=== PATIENT | female | born 1990 | race American Indian/Alaskan Native ===

== ENCOUNTER 2017-11-04 06:33 | Inpatient (IN) | payer MEDICAID ==
[~2017-11-04 06:33] MED LIST: Acetaminophen 325 MG Tab PO PRN; Carboprost Tromethamine 250 MCG/1 ML Amp IM PRN; Lactated Ringers 1,000 ML IV SCH; Lactated Ringers 500 ML IV ONE; Lidocaine 1% 30 ML SDV INJECT PRN; Methylergonovine 0.2 MG/1 ML Amp IM PRN; Misoprostol 25 MCG (1/4 of 100 MCG) Tab VAG PRN; Misoprostol 400 MCG (4 X 100 MCG TAB) RECTAL PRN; Ondansetron 4 MG/2 ML SDV IV PRN; Oxytocin/Normal Saline 30 UNIT/500 ML BAG IV SCH; Penicillin G Potassium 5 MILLUNITS in Sodium Chloride 0.9% 100 ML IV ONE; Sodium Chloride 0.9% 10 ML Syringe FLUSH PRN; Tranexamic Acid 1,000 MG in Sodium Chloride 0.9% 100 ML IV PRN; fentaNYL 100 MCG/2 ML SDV IVPUSH PRN
[2017-11-04] MEDS ORDERED: Terbutaline 1 MG/ML SDV SUBCUT ONE (08:00)
[2017-11-04] MEDS ORDERED: ceFAZolin 2 GM in Premix Bag 1 BAG IV ONE (08:24)
[2017-11-04] MEDS ORDERED: Citric Acid/Sodium Citrate Solution 30 ML Cup PO ONE (08:24)
--- NOTE | 2017-11-04 09:37 | US ---
CLINICAL HISTORY: 27 year old gravid female in a breech presentation. External cephalad version attem pt unsuccessful. Single live intrauterine uterine gestation with variable heart rate during external version (149 bpm pre-version; 161 bpm during the attempt; and heart rate 181 bpm after the external version atte mpt). CONCLUSION: Unsuccessful external version, i.e., single live intrauterine gestation breech presentati on.
[2017-11-04] MEDS ORDERED: Penicillin G Potassium 3 MILLUNITS in Sodium Chloride 0.9% 100 ML IV SCH (10:00)
[2017-11-04] MEDS ORDERED: Oxytocin/Normal Saline 60 UNIT/1,000 ML BAG ONE (12:00)
[2017-11-04] MEDS: Lactated Ringers 1,000 ML IV SCH ×2 (12:00→17:00)
[2017-11-04] MEDS ORDERED: Oxytocin/Normal Saline 30 UNIT/500 ML BAG IV ONE (13:32)
[2017-11-04] MEDS ORDERED: Naloxone 2 MG/2 ML Syringe IVPUSH PRN (13:34)
[2017-11-04] MEDS ORDERED: ePHEDrine 50 MG/ML SDV IVPUSH PRN (13:34)
[2017-11-04] MEDS ORDERED: diphenhydrAMINE 50 MG/ML SDV IVPUSH PRN (13:34)
[2017-11-04] MEDS ORDERED: Carboprost Tromethamine 250 MCG/1 ML Amp IM ONE (13:34)
[2017-11-04] MEDS ORDERED: Measles, Mumps & Rubella Vaccine 0.5 ML SDV SUBCUT ONE (13:34)
[2017-11-04] MEDS ORDERED: Acetaminophen/oxyCODONE 325-5 MG Tab PO PRN (13:34)
[2017-11-04] MEDS ORDERED: Acetaminophen 325 MG Tab PO PRN (13:34)
[2017-11-04] MEDS ORDERED: Methylergonovine 0.2 MG/1 ML Amp IM PRN (13:34)
[2017-11-04] MEDS ORDERED: Ondansetron 4 MG/2 ML SDV IV PRN (13:34)
[2017-11-04] MEDS ORDERED: Tranexamic Acid 1,000 MG in Sodium Chloride 0.9% 100 ML IV PRN (13:34)
[2017-11-04] MEDS ORDERED: Misoprostol 400 MCG (4 X 100 MCG TAB) RECTAL PRN (13:34)
[2017-11-04] MEDS ORDERED: Propofol 200 MG/20 ML SDV IV ONE (15:23)
[2017-11-04] MEDS ORDERED: Midazolam 1 MG/ML 2 ML SDV IV ONE (15:23)
[2017-11-04] MEDS ORDERED: Morphine PF 1 MG/ML Amp ONE (15:23)
[2017-11-04] MEDS ORDERED: Lactated Ringers 1,000 ML IV ONE (15:23)
[2017-11-04] MEDS ORDERED: fentaNYL 100 MCG/2 ML SDV ITHECAL ONE (15:23)
[2017-11-04] MEDS ORDERED: Bupivacaine 0.75%/D5W 2 ML Amp INJECT ONE (15:23)
--- NOTE | 2017-11-04 16:57 | OR ---
DATE: 11/04/2017 PROCEDURE PERFORMED: Primary low transverse section. INDICATION FOR PROCEDURE: 1. Breech presentation. 2. Poor growth. PREPROCEDURE DIAGNOSES: 1. 3, para 2-0-0-2. 2. 38 and 1/7 weeks' intrauterine . 3. Poor growth. 4. Maternal smoker. 5. Group B streptococcus bacteriuria. 6. Rubella nonimmune. 7. Iron-deficiency anemia. 8. Anemia of . 9. Benign gestational thrombocytopenia. 10.Unstable lie with failed external cephalad version earlier today. POSTPROCEDURE DIAGNOSES: 1. 3, now para 3-0-0-3. 2. 38 and 1/7 weeks' intrauterine . 3. Poor growth. 4. Maternal smoker. 5. Group B streptococcus bacteriuria. 6. Rubella nonimmune. 7. Iron-deficiency anemia. 8. Anemia of . 9. Benign gestational thrombocytopenia. 10.Unstable lie with failed external cephalad version earlier today. 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 12.Placenta accreta with posterior placenta predominantly on the maternal left as well. 13.Delivery of a small for gestational age infant. SURGEON: Abril Colon MD RETAIL SECURITY PROFESSIONAL: Freddy Tidwell MD SECOND LAUNCH MANAGER: Concha Oreilly MS-III BRIEF HISTORY: The patient presented to the hospital this morning for planned external cephalic version, which was attempted, but unsuccessful. Due to the baby measuring less than the 3rd percentile for growth, it was important that we proceed with delivery today and with breech presentation that needed to be done via section. CONSENT: Discussed with the patient and her significant other indications risks, benefits, and alternatives of primary low transverse section including, but not limited to risk of infection and plan for preoperative antibiotics, risk of bleeding that could require a blood transfusion as well as its inherent risks including transfusion reaction, contraction of bloodborne disease or illness and other inherent risks, risk of injury to any large blood vessels, nerves, veins, internal organs or other adjacent unintended structures including but not limited to uterus fallopian tubes, ovaries, bladder, intestines, and other adjacent structures, potential injury to the baby, potential for complications for mother and/or baby that would require a transfer to a higher level of care and even remote risk of . She had verbalized understanding. Her questions were answered. Consent forms were signed, and can be found in the chart. PROCEDURE IN DETAIL: The patient was brought to the operating room and spinal anesthesia obtained. She was laid in the normal dorsal supine position with leftward tilt and Cortez indwelling catheter placed. Abdomen was prepped and draped in the usual fashion and a skin incision made at 12:28 with scalpel, carried down to the underlying fascia using finger dissection and cautery. Fascia was incised in the midline with cautery and extended bilaterally with traction. Superior fascia was elevated and rectus muscles dissected off bluntly. The inferior fascial edge grasped with Cornelius's, tented up, and rectus muscle dissected off bluntly. The peritoneal cavity entered with blunt finger dissection. The Alok O retractor then placed. Uterus palpated and noted to have a heart shape with a dominant left side. Appropriate location for uterine incision was made with the scalpel and both the baby's feet were presenting, so feet and legs were brought through the hysterotomy site with baby sacrum anterior. Baby was then rotated to have the right shoulder anterior, that arm was swept across the chest and out of the hysterotomy site. Baby then rotated to have the left arm anterior, which was then swept across the chest, and out of the hysterotomy site while maintaining flexion of the head, the remainder of the infant was delivered at 1231. 's umbilical cord was noted to be around the neck in a necktie fashion and rather thin, as far as [place] jelly and I suspect would have caused cord incident during attempted vaginal . The infant's nose and mouth were bulb suctioned. Three-vessel umbilical cord doubly clamped, cut, and baby taken to the warmer for further evaluation. The placenta was attempted to be removed by cord traction and concomitant uterine massage; however, we were having great difficulty and cord was tearing, therefore, the majority of it was removed by manual extraction. However, there were a large adherent area more so of the amniotic type sac material to the posterior uterine wall, primarily on the left side, which were removed with ring forcep and finger curettage with lap sponge. After we felt we had all of the amniotic sac and all placental material removed, the hysterotomy site was closed with a running lock suture of 0 Vicryl in the usual fashion. There was some brisk bleeding, controlled with Hightower and pressure as we went along. A 2nd imbricating stitch was placed and the majority of hemostasis achieved; however, 1 additional [id number] stitch was needed in the midline to achieve final hemostasis. The Alok retractor was removed; prior to this, the uterus had been inspected, bicornuate shape with some small fibroids were noted. Again, the dominant left horn was seen. The pericolic gutters were cleared of all clots and debris and the layer irrigated. The hysterotomy site reinspected and remained hemostatic. Peritoneal layer was closed with a running stitch of 0 Vicryl that was left over. The fascia was then closed with 0 looped PDS in the usual fashion and hemostasis again verified in the subcutaneous tissue with cautery used as needed for small subcutaneous bleeders. This layer was then irrigated and the skin was closed with a running stitch of 4-0 Monocryl, and further reinforced with Mastisol and Steri-Strips. Case complete at 1315. The patient tolerated the procedure fairly well. She was not feeling anything sharp, but the pressure of the procedure was causing significant pain, so she did receive additional anesthesia and I believe anxiolytics during the case. ESTIMATED BLOOD LOSS: 1000 mL. URINE OUTPUT: 400 mL of clear. FLUIDS: 1200 mL of crystalloids. FINDINGS: Viable female , weighing 5 pounds 3 ounces, scores to be determined. DISPOSITION: Baby went to the nursery. Mother to stay in the PACU for further recovery time and they will be reunited. [facility] /[id number] REBECA
--- NOTE | 2017-11-04 17:24 | OR ---
DATE: 11/04/2017 PROCEDURE PERFORMED: External cephalad version. PLATER PRINTED CIRCUIT BOARD PANELS: Freddy Tidwell MD SECOND GOLF BALL INSPECTOR: Concha Oreilly, MS-III BRIEF HISTORY: The patient is a 3, para 2-0-0-2, currently with a poorly-growing fetus; however, reassuring testing and adequate DIANE of over 11. Baby has been variable breech and vertex with unstable lie, currently breech and baby needs to be delivered because of the poor growth. Plan today is for attempted external cephalad version to allow for vaginal delivery because of the growth restriction. Mother is willing to proceed and appropriate consent forms had been signed. I did discuss with her indication as to return vertex in order to allow for vaginal delivery which has lower risk than immediately proceeding to primary ; however, if unsuccessful, delivery via would be indicated. Risk of potential uterine rupture; placental abruption; cord accident caused, need for an emergency section as well as its inherent risks; risk of discomfort. The patient verbalizes understanding and her questions have been answered. PROCEDURE IN DETAIL: The patient was brought into the hospital earlier this morning and she did have a reactive category I tracing. She was given terbutaline to help relax the uterus. She had an IV place and she was placed in Trendelenburg. Ultrasound confirmed mirella breech with the spine to the maternal left and head on the maternal right just up under the liver with adequate coating of the abdomen with ultrasound jelly. Dr. Tidwell and I first attempted a backward roll of the baby to try to get it to turn down, which was unsuccessful. We verified heart rate in between, then I attempted forward roll, which was ultimately also unsuccessful. In general, the patient tolerated the procedure well, and at this time, as it has been advised that we will be proceeding with primary section later on today when the operating room is available. Her questions have been answered. COMPLICATIONS: None. ESTIMATED BLOOD LOSS: None. FLUIDS: None. DRAINS: None. [facility] /[id number]
[2017-11-04] MEDS: Simethicone 80 MG Tab.Chew PO SCH ×2 (17:54→21:46)
[2017-11-04] MEDS: Ketorolac 30 MG/ML SDV IVPUSH SCH (18:08)
[2017-11-04] MEDS ORDERED: Ketorolac 30 MG/ML SDV IVPUSH SCH (20:00)
[2017-11-04] MEDS: Ferrous Sulfate 325 MG Tab PO SCH (21:46)
[2017-11-04] MEDS: Docusate Sodium 100 MG Cap PO PRN (21:46)
[2017-11-05] MEDS: Ketorolac 30 MG/ML SDV IVPUSH SCH ×3 (00:18→11:37)
[2017-11-05] MEDS: Lactated Ringers 1,000 ML IV SCH (00:18)
--- NOTE | 2017-11-05 08:30 | PN ---
DATE: 11/05/2017 SUBJECTIVE: This patient is a 27-year-old 3, para 2-0-0-2 female, who was delivered via primary section yesterday because of footling breech presentation. She did have footling breech presentation after an external cephalic version attempt, which was unsuccessful, so because of the unstable lie and poor growth during , the section was accomplished. She did have a bicornuate uterus and placenta accreta noted with removal of all placenta that we could get from the uterus. She tolerated her evening quite well. She is afebrile. Vital signs are stable. She tolerated her diet well. She had minimal lochia. Her incision did not have any drainage through the bandage. She had no dizziness or lightheadedness. OBJECTIVE: General: Well-developed, well-nourished female, in no acute distress. Vital Signs: Stable. Afebrile. HEENT: Unremarkable. Neck: Supple without adenopathy. No thyromegaly. Lungs: Clear to auscultation. No wheezing, rhonchi, or rales noted. Cardiovascular: Regular rate and rhythm without murmurs. Abdomen: Soft, gravid, and nontender. Fundal height at the umbilicus and firm. Incision is covered with Steri-Strips with no drainage noted. Extremities: No edema, erythema, or tenderness noted. LABORATORY DATA: 11/05/2017; WBC 10.1, hemoglobin 8.0, hematocrit 24.0, and platelet count 119,000. ASSESSMENT: 1. Postoperative day #1, status post primary section, doing well. 2. Acute anemia secondary to blood loss. 3. Benign thrombocytopenia. PLAN: 1. Continue present care. 2. We will repeat CBC tomorrow morning. 3. We will get up and about and start oral pain medications. All questions answered. [facility] /[id number]
[2017-11-05] MEDS: Simethicone 80 MG Tab.Chew PO SCH ×4 (11:20→21:06)
[2017-11-05] MEDS: Prenatal Multivitamin with Calcium/Folic Acid/Iron Tab PO SCH (11:23)
[2017-11-05] MEDS: Ferrous Sulfate 325 MG Tab PO SCH ×2 (11:24→21:05)
[2017-11-05] MEDS ORDERED: Ibuprofen 800 MG Tab PO PRN (16:00)
[2017-11-05] MEDS: Acetaminophen/oxyCODONE 325-5 MG Tab PO PRN ×2 (16:45→21:13)
[2017-11-05] MEDS: Docusate Sodium 100 MG Cap PO PRN (21:06)
[2017-11-06] MEDS: Acetaminophen/oxyCODONE 325-5 MG Tab PO PRN (02:06)
[2017-11-06 08:39] VITALS: BP 98/59
[2017-11-06] MEDS: Docusate Sodium 100 MG Cap PO PRN (08:54)
[2017-11-06] MEDS: Ferrous Sulfate 325 MG Tab PO SCH (08:54)
[2017-11-06] MEDS: Simethicone 80 MG Tab.Chew PO SCH (08:55)
[2017-11-06] MEDS: Prenatal Multivitamin with Calcium/Folic Acid/Iron Tab PO SCH (08:56)
--- NOTE | 2017-11-06 11:19 | PCM.PNPP ---
- General Info Date of Service: 11/06/17 (PPPD/POD # 2 S/P Primary LTC/S) Functional Status: Reports: Pain Controlled, Tolerating Diet, Ambulating, Urinating - Review of Systems General: Reports: No Symptoms HEENT: Reports: No Symptoms Pulmonary: Reports: No Symptoms Cardiovascular: Reports: No Symptoms Gastrointestinal: Reports: No Symptoms Genitourinary: Reports: No Symptoms Musculoskeletal: Reports: No Symptoms Skin: Reports: No Symptoms Neurological: Reports: No Symptoms Psychiatric: Reports: No Symptoms - General Info Date of Service: 11/06/17 (PPD/POD # 2) - Patient Data Vital Signs - Most Recent: Last Vital Signs Temp 97.5 F 11/06/17 08:00 Pulse 74 11/06/17 08:00 Resp 20 11/06/17 08:00 BP 98/59 L 11/06/17 08:00 Pulse Ox 99 11/06/17 08:00 Weight - Most Recent: 168 lb I&O - Last 24 Hours: Intake & Output 11/05/17 11/06/17 11/06/17 22:59 06:59 14:59 Intake Total 1050 250 120 Output Total 500 Balance 550 250 120 Lab Results - Last 24 Hours: Laboratory Results - last 24 hr 11/06/17 Range/Units 06:25 WBC 10.5 H (5.0-10.0) 10^3/uL RBC 2.62 L (4.2-5.4) 10^6/uL Hgb 8.6 L (12.0-16.0) g/dL Hct 26.4 L (37.0-47.0) % MCV 100.8 H (80-100) fL MCH 32.8 (27.0-34.0) pg MCHC 32.6 L (33.0-35.0) g/dL Plt Count 139 L (150-450) 10^3/uL Neut % (Auto) 69.8 (42.2-75.2) % Lymph % (Auto) 24.2 (20.5-50.1) % [place] % (Auto) 4.8 (2-8) % Eos % (Auto) 1.0 (1.0-3.0) % Baso % (Auto) 0.2 (0.0-1.0) % Med Orders - Current: Current Medications Acetaminophen (Tylenol) 650 mg PO Q6H PRN PRN Reason: mild pain or fever Diphenhydramine HCl (Benadryl) 25 mg IVPUSH Q6H PRN PRN Reason: Itching or Nausea Docusate Sodium (Colace) 100 mg PO Q12H PRN PRN Reason: Constipation Last Admin: 11/06/17 08:54 Dose: 100 mg Ephedrine Sulfate (Ephedrine Sulfate) 5 mg IVPUSH SEECOMMENT PRN PRN Reason: Other Ferrous Sulfate (Ferrous Sulfate) 325 mg PO BID [facility] Last Admin: 11/06/17 08:54 Dose: 325 mg Tranexamic Acid 1,000 mg/ (Sodium Chloride) 110 mls @ 660 mls/hr IV ONETIME PRN PRN Reason: Bleeding Lactated Ringer's (Ringers, Lactated) 1,000 mls @ 125 mls/hr IV ASDIRECTED [facility] Last Admin: 11/05/17 00:18 Dose: 125 mls/hr Ibuprofen (Motrin) 800 mg PO Q8H PRN PRN Reason: mild pain or fever Last Admin: 11/06/17 08:54 Dose: 800 mg Methylergonovine Maleate (Methergine) 0.2 mg IM ONETIME PRN PRN Reason: Excessive Vaginal Bleeding Misoprostol (Cytotec) 800 mcg RECTAL ASDIRECTED PRN PRN Reason: Excessive bleeding Naloxone HCl (Narcan) 0.1 mg IVPUSH SEECOMMENT PRN PRN Reason: Respiratory Depression Ondansetron HCl (Zofran) 4 mg IV Q4H PRN PRN Reason: Nausea/Vomiting Oxycodone/Acetaminophen (Percocet 325-5 Mg) 1 tab PO Q4H PRN PRN Reason: Pain (moderate 4-6) Oxycodone/Acetaminophen (Percocet 325-5 Mg) 2 tab PO Q4H PRN PRN Reason: Pain (moderate 4-6) Last Admin: 11/06/17 02:06 Dose: 2 tab Prenat Multivit/Hutchinson/Iron/Folic Ac ( Plus Iron) 1 each PO DAILY [facility] Last Admin: 11/06/17 08:56 Dose: Not Given Simethicone (Simethicone) 160 mg PO QID [facility] Last Admin: 11/06/17 08:55 Dose: 160 mg Sodium Chloride (Saline Flush) 10 ml FLUSH ASDIRECTED PRN PRN Reason: Keep Vein Open Last Admin: 11/05/17 21:08 Dose: 10 ml Discontinued Medications Acetaminophen (Tylenol) 650 mg PO Q4H PRN PRN Reason: Pain (Mild 1-3) and fever Bupivacaine HCl/Dextrose (Marcaine 0.75% Spinal) 2 ml INJECT .STK-MED ONE Stop: 11/04/17 15:24 Carboprost Tromethamine (Hemabate Ds) 250 mcg IM ASDIRECTED PRN PRN Reason: HEMORRHAGE Carboprost Tromethamine (Hemabate Ds) 250 mcg IM ONETIME ONE Stop: 11/04/17 13:35 Last Admin: 11/04/17 17:54 Dose: Not Given Citric Acid/Sodium Citrate (Bicitra Solution) 30 ml PO ONETIME ONE Stop: 11/04/17 08:25 Last Admin: 11/04/17 17:46 Dose: Not Given Fentanyl (Sublimaze) 50 mcg IVPUSH Q1H PRN PRN Reason: Pain (moderate 4-6) Fentanyl (Sublimaze) 200 mcg ITHECAL .STK-MED ONE Stop: 11/04/17 15:24 Lactated Ringer's (Ringers, Lactated) 500 mls @ 999 mls/hr IV .BOLUS ONE Stop: 11/04/17 06:30 Last Admin: 11/04/17 17:46 Dose: Not Given Lactated Ringer's (Ringers, Lactated) 1,000 mls @ 125 mls/hr IV ASDIRECTED LUIZ Last Admin: 11/04/17 07:05 Dose: 125 mls/hr Oxytocin/Sodium Chloride (Pitocin In Ns 30 Unit/500 Ml) 30 unit in 500 mls @ 2 mls/hr IV TITRATE LUIZ; Protocol Last Titration: 11/04/17 17:00 Dose: 0 mls/hr Penicillin G Potassium 5 (millunits/ Sodium Chloride) 100 mls @ 200 mls/hr IV ONETIME ONE Stop: 11/04/17 06:29 Last Admin: 11/04/17 17:46 Dose: Not Given Penicillin G Potassium 3 (millunits/ Sodium Chloride) 100 mls @ 200 mls/hr IV Q4HR LUIZ Tranexamic Acid 1,000 mg/ (Sodium Chloride) 110 mls @ 660 mls/hr IV ONETIME PRN PRN Reason: Bleeding Cefazolin Sodium/Dextrose 2 gm (/ Premix) 50 mls @ 100 mls/hr IV ONETIME ONE Stop: 11/04/17 08:53 Last Admin: 11/04/17 12:05 Dose: 100 mls/hr Oxytocin/Sodium Chloride (Pitocin In Ns 30 Unit/500 Ml) Confirm Administered Dose 60 unit in 1,000 mls @ as directed .ROUTE .STK-MED ONE Stop: 11/04/17 12:01 Lactated Ringer's (Ringers, Lactated) 1,000 mls @ as directed IV .STK-MED ONE Stop: 11/04/17 15:24 Ketorolac Tromethamine (Toradol) 15 mg IVPUSH Q6H LUIZ Stop: 11/05/17 08:01 Ketorolac Tromethamine (Toradol) 30 mg IVPUSH Q6H LUIZ Stop: 11/05/17 12:01 Last Admin: 11/05/17 11:37 Dose: 30 mg Lidocaine HCl (Xylocaine-Mpf 1%) 10 ml INJECT ASDIRECTED PRN PRN Reason: Perineal Repair Lidocaine HCl (Xylocaine-Mpf 1%) 3 ml INJECT .STK-MED ONE Stop: 11/04/17 15:24 Measles/Mumps/Rubella Vaccine Live (M-M-R Ii Vaccine) 0.5 ml SUBCUT .ONCE ONE Stop: 11/04/17 13:35 Last Admin: 11/05/17 13:57 Dose: 0.5 ml Methylergonovine Maleate (Methergine) 0.2 mg IM ASDIRECTED PRN PRN Reason: Hemorrhage Midazolam HCl (Versed 1 Mg/Ml) 2 mg IV .STK-MED ONE Stop: 11/04/17 15:24 Misoprostol (Cytotec) 800 mcg RECTAL ASDIRECTED PRN PRN Reason: Hemorrhage Misoprostol (Cytotec) 25 mcg VAG Q4H PRN PRN Reason: cervical ripening Misoprostol (Cytotec) 25 mcg VAG Q4H PRN PRN Reason: cervical ripening Morphine Sulfate (Duramorph Pf) 0.2 mg .XX .STK-MED ONE Stop: 11/04/17 15:24 Ondansetron HCl (Zofran) 4 mg IV Q4H PRN PRN Reason: Nausea/Vomiting Propofol (Diprivan 20 Ml) 300 mg IV .STK-MED ONE Stop: 11/04/17 15:24 Terbutaline Sulfate (Brethine) 0.25 mg SUBCUT ONETIME ONE Stop: 11/04/17 08:01 Last Admin: 11/04/17 07:31 Dose: 0.25 mg - Interaction Disposition, : [place] in Room with Family Infant Interaction: Holding Infant Infant Feeding: Bottle Fed Support Person: Significant Other - Recovery Exam Fundal Tone: Firm Fundal Level: 1 Fingerbreadths Below Umbilicus Fundal Placement: Midline Lochia Amount: Small Lochia Color: Rubra/Red Perineum Description: Intact, Minimal Bruising/Swelling Episiotomy/Laceration: None Bladder Status: Voiding Urinary Elimination: Voided - Exam General: Alert, Oriented, Cooperative, No Acute Distress HEENT: Pupils Equal, Pupils Reactive, EOMI, Mucous Membr. Moist/[place] Neck: Supple Lungs: Clear to Auscultation, Normal Respiratory Effort Cardiovascular: Regular Rate, Regular Rhythm GI/Abdominal Exam: Normal Bowel Sounds, Soft, Non-Tender, No Distention Extremities: Normal Inspection, Normal Range of Motion, Non-Tender, No Pedal Edema Skin: Warm, Dry, Intact Wound/Incisions: Healing Well Neurological: No New Focal Deficit Psy/Mental Status: Alert, Normal Affect, Normal Mood - Problem List Review Problem List Initiated/Reviewed/Updated: Yes - Assessment Assessment:: PPD/POD # 2 S/P Primary LTC/S Doing well Acute anemia secondary to blood loss Asymptomatic Thrombocytopenia - Plan Plan:: Discharge to home Followup with Dr. Owens in office Ibuprofen 800 mg 1 tab TID Percocet 5/325 mg 1 tab tid po FeSO4 1 tab tid po
--- NOTE | 2017-11-06 12:21 | DISCH ---
INDICATION FOR ADMISSION: Ms. Lee is a 27-year-old, 3, para 2-0- 0-2, female at 38 and 1/7 weeks' gestation, who reported to Labor and Delivery for an external cephalic version which was unsuccessful. The infant had poor growth. The patient had iron-deficiency anemia, benign gestational thrombocytopenia, unstable lie, and footling breech presentation, so a primary section was accomplished. The patient tolerated the procedure quite well. She delivered a viable female infant, weighing 5 pounds 3 ounces, the scores were 9 at 1 minute and 9 at 5 minutes, length 18 inches long. The patient did quite well and was sent to the OB floor after recovery. She tolerated her diet well and ambulated quite well. She had a minimal lochia. Her incision did well with no erythema or drainage noted. She had Steri-Strips over the wound for dressing. She was discharged to home on postop day #2. LABORATORY AND DIAGNOSTIC STUDIES: 1. On 11/04/2017, WBC 11.7, hemoglobin 11.4, hematocrit 33.9, and platelet count 138,000. 2. On 11/04/2017, WBC 14.4, hemoglobin 9.2, hematocrit 27.1, and platelet count 141,000. 3. On 11/05/2017, WBC 10.1, hemoglobin 8, hematocrit 24, and platelet count 119,000. 4. On 11/06/2017, WBC 10.5, hemoglobin 8.6, hematocrit 26.4, and platelet count 139,000. DISCHARGE INSTRUCTIONS: 1. Discharge to home. 2. Follow up with Dr. Owens for followup of infant and wound within the next week. 3. No douching, tampons, or intercourse for 6 weeks. 4. Discharge instructions including activity, followup, medications, diet, and wound care were discussed with the patient. She understands these and is willing to comply with these. 5. Iron 325 mg 1 tablet t.i.d. 6. vitamin 1 tablet daily. 7. Ibuprofen 800 mg 1 tablet every 6 to 8 hours p.r.n. for pain. 8. Percocet 5/325 mg 1 tablet t.i.d. p.r.n. for pain. DISCHARGE DIAGNOSES: 1. A 38 and 1/7-week intrauterine . 2. Poor growth. 3. Maternal smoker. 4. Group B streptococcal bacteria. 5. Rubella nonimmune. 6. Chronic iron-deficiency anemia of . 7. Acute anemia secondary to blood loss. 8. Benign gestational thrombocytopenia. 9. Unstable lie with failed external cephalic version. 10.Placenta accreta. 11.Bicornuate uterus with dominant cord on the maternal left. 12.Delivery of a viable female , weighing 5 pounds 3 ounces with scores of 9 at 1 minute and 9 at 5 minutes, 18 inches long. 13.Spinal anesthesia with Duramorph. [facility] /[id number]
== END 2017-11-06 13:33 | disposition home or self-care (01) | DRG 765 ==
LOC: DL.OB 06:33 → PREINTOOBSV 11:04 → OBSVTOIN 12:31 → DL.MS 11-05 18:30
PROVIDERS: ADMIT Family Medicine; ATTEND Family Medicine
PROC: 10D00Z1 Extraction of Products of Conception, Low, Open Approach (ICD-10-PCS; principal; 2017-11-04)
PROC: 10S0XZZ Reposition Products of Conception, External Approach (ICD-10-PCS; 2017-11-04)
DX: O32.0XX0 Maternal care for unstable lie, not applicable or unspecified (principal); O99.12 Other diseases of the blood and blood-forming organs and certain disorders involving the immune mechanism complicating childbirth; D62 Acute posthemorrhagic anemia; O36.5930 Maternal care for other known or suspected poor fetal growth, third trimester, not applicable or unspecified; Z3A.38 38 weeks gestation of pregnancy; Z37.0 Single live birth; O99.334 Smoking (tobacco) complicating childbirth; O69.81X0 Labor and delivery complicated by cord around neck, without compression, not applicable or unspecified; F17.200 Nicotine dependence, unspecified, uncomplicated; O99.02 Anemia complicating childbirth; D50.9 Iron deficiency anemia, unspecified; D69.6 Thrombocytopenia, unspecified; O34.03 Maternal care for unspecified congenital malformation of uterus, third trimester; Q51.3 Bicornate uterus; O43.213 Placenta accreta, third trimester; O34.13 Maternal care for benign tumor of corpus uteri, third trimester; D25.9 Leiomyoma of uterus, unspecified
CPT/HCPCS: 01961; 36415; 59412; 76815; 85025; 85027; 86850; 86900; 86901; 86920; 86922; 90707; 94010; A9270-GY; J0690; J1885; J2250; J2274; J2590; J2704; J3010; J3105; J7050; J7120

== ENCOUNTER 2024-02-03 11:55 | Inpatient (IN) | payer MEDICAID ==
[2024-02-07] MEDS ORDERED: Tranexamic Acid 1,000 MG in Sodium Chloride 0.9% 100 ML IV PRN ×2 (07:47→13:15)
[2024-02-07] MEDS ORDERED: Carboprost Tromethamine 250 MCG/1 ML Amp IM PRN ×2 (07:47→13:15)
[2024-02-07] MEDS ORDERED: Sodium Chloride 0.9% 10 ML Syringe FLUSH PRN (07:47)
[2024-02-07] MEDS ORDERED: Methylergonovine 0.2 MG Tab PO PRN (07:47)
[2024-02-07] MEDS ORDERED: Oxytocin 10 Units/1 ML SDV IM PRN (07:47)
[2024-02-07] MEDS ORDERED: Lactated Ringers 1,000 ML IV SCH ×2 (08:00→13:15)
[2024-02-07] MEDS: Lactated Ringers 1,000 ML IV SCH (10:20)
[2024-02-07 10:27] LABS: BASOPHILS PERCENT AUTO 0.2 % (0.0-1.0); EOSINOPHILS PERCENT AUTO 1.2 % (1.0-3.0); HEMATOCRIT 35.5 % (37.0-47.0); HEMOGLOBIN 11.4 g/dL (12.0-16.0); LYMPHOCYTES PERCENT AUTO 23.3 % (20.5-50.1); MEAN CORPUSCULAR HEMOGLOBIN 28.3 pg (27.0-34.0); MEAN CORPUSCULAR HGB CONC 32.1 g/dL (33.0-35.0); MEAN CORPUSCULAR VOLUME 88.1 fL (80-100); MONOCYTES PERCENT AUTO 4.2 % (2-8); NEUTROPHILS PERCENT AUTO 71.1 % (42.2-75.2); PLATELET COUNT,PLT 155 10^3/uL (150-450); RED BLOOD CELL COUNT 4.03 10^6/uL (4.2-5.4); WHITE BLOOD CELL COUNT,WBC 9.5 10^3/uL (5.0-10.0)
[2024-02-07] MEDS ORDERED: Dexamethasone 4 MG/ML SDV ONE (11:17)
[2024-02-07] MEDS ORDERED: Ondansetron 4 MG/2 ML SDV ONE (11:17)
[2024-02-07] MEDS ORDERED: ceFAZolin 2 GM Vial ONE (11:18)
[2024-02-07] MEDS ORDERED: Oxytocin 10 Units/1 ML SDV ONE (11:18)
[2024-02-07] MEDS ORDERED: Ketorolac 30 MG/ML SDV ONE (11:18)
[2024-02-07] MEDS ORDERED: Succinylcholine 200 MG/10 ML MDV ONE (11:18)
[2024-02-07] MEDS ORDERED: Naloxone 2 MG/2 ML Syringe IVPUSH PRN (13:15)
[2024-02-07] MEDS ORDERED: ePHEDrine 50 MG/ML SDV IVPUSH PRN (13:15)
[2024-02-07] MEDS ORDERED: Misoprostol 400 MCG (4 X 100 MCG TAB) RECTAL PRN (13:15)
[2024-02-07] MEDS ORDERED: Methylergonovine 0.2 MG/1 ML Amp IM PRN (13:15)
[2024-02-07] MEDS ORDERED: Acetaminophen/oxyCODONE 325-5 MG Tab PO PRN (13:15)
[2024-02-07] MEDS ORDERED: Ondansetron 4 MG/2 ML SDV IVPUSH PRN (13:15)
[2024-02-07] MEDS: Oxytocin/Normal Saline 30 UNIT/500 ML BAG IV SCH (13:31)
[2024-02-07] MEDS ORDERED: diphenhydrAMINE 50 MG/ML SDV IVPUSH PRN (14:27)
[2024-02-07] MEDS: diphenhydrAMINE 50 MG/ML SDV IVPUSH PRN (15:05)
[2024-02-07] MEDS: Ibuprofen 800 MG Tab PO SCH (16:43)
[2024-02-07] MEDS: Ketorolac 30 MG/ML SDV IVPUSH SCH ×2 (16:44→19:12)
[2024-02-07] MEDS: Acetaminophen 325 MG Tab PO PRN (17:13)
[2024-02-07] MEDS: Simethicone 80 MG Tab.Chew PO SCH (17:14)
[2024-02-07] MEDS: Sodium Chloride 0.9% 10 ML Syringe FLUSH SCH (18:26)
[2024-02-07] MEDS: Docusate Sodium 100 MG Cap PO PRN (19:11)
[2024-02-08 06:32] LABS: HEMATOCRIT 26.6 % (37.0-47.0); HEMOGLOBIN 8.4 g/dL (12.0-16.0); MEAN CORPUSCULAR HEMOGLOBIN 28.4 pg (27.0-34.0); MEAN CORPUSCULAR HGB CONC 31.6 g/dL (33.0-35.0); MEAN CORPUSCULAR VOLUME 89.9 fL (80-100); RED BLOOD CELL COUNT 2.96 10^6/uL (4.2-5.4); WHITE BLOOD CELL COUNT,WBC 11.5 10^3/uL (5.0-10.0)
[2024-02-08] MEDS: Prenatal Multivitamin with Calcium/Folic Acid/Iron Tab PO SCH (08:36)
[2024-02-08] MEDS: Acetaminophen/oxyCODONE 325-5 MG Tab PO PRN (12:09)
[2024-02-08] MEDS ORDERED: Ibuprofen 800 MG Tab PO SCH (15:00)
[2024-02-08] MEDS: Ibuprofen 800 MG Tab PO SCH (18:32)
[2024-02-09] MEDS: Measles, Mumps & Rubella Vaccine 0.5 ML SDV SUBCUT ONE (12:48)
[2024-02-09] MEDS: Diphtheria,Pertussis(Acell),Tetanus Vaccine 0.5 ML Syringe IM ONE (12:49)
[2024-02-09 13:16] VITALS: BP 138/78; PULSE 67
== END 2024-02-09 13:00 | disposition home or self-care (01) | DRG 788 ==
LOC: DL.OB 12:12 → UNDOADMOB 12:12 → DL.OB 02-07 10:03 → OBSVTOIN 02-07 12:22 → DL.OB 02-07 12:22
PROVIDERS: ADMIT Student in an Organized Health Care Education/Training Program; ATTEND Student in an Organized Health Care Education/Training Program
PROC: 10D00Z1 Extraction of Products of Conception, Low, Open Approach (ICD-10-PCS; principal; 2024-02-07 11:47)
DX: O34.211 Maternal care for low transverse scar from previous cesarean delivery (principal); Z3A.38 38 weeks gestation of pregnancy; Z37.0 Single live birth; O99.02 Anemia complicating childbirth; D50.9 Iron deficiency anemia, unspecified; O99.334 Smoking (tobacco) complicating childbirth; F17.210 Nicotine dependence, cigarettes, uncomplicated; Q51.3 Bicornate uterus
CPT/HCPCS: 01961; 36415; 59025; 85025; 85027; 86850; 86900; 86901; 90471; 90707; 90715; A9270-GY; J0330; J1200; J1885; J2590; J3490; J7120